=== PATIENT | female | born 1995 | race Caucasian/White ===

== ENCOUNTER 2024-11-05 11:25 | Outpatient (CLI) | payer OTHER, SELFPAY ==
--- NOTE | 2024-11-05 11:30 | CRLHL7_ITS ---
For Patients: As a result of the Century Cures Act, medical imaging exams and procedure reports are released immediately into your electronic medical record. You may view this report before your referring provider. If you have questions, please contact your health care provider. OB ULTRASOUND LESS THAN 14 WEEKS, 11/05/2024 CLINICAL HISTORY: Dating and viability. COMPARISON: None. TECHNIQUE: Real time tomlin scale imaging of the fetus was performed transvaginally. FINDINGS: LMP: 09/06/2024. KELLI by LMP: 06/13/2025. GA: 8 weeks 4 days. CRL: 2.1 cm, 8 weeks 5 days. KELLI 06/12/2025. FHR: 178 bpm. GEST SAC: 3.3 cm, appears within normal limits. YOLK SAC: 3.8 mm, appears within normal limits. RIGHT OVARY: 3.9 x 1.9 x 2.1 cm CL, within normal limits. LEFT OVARY: 2.5 x 1.0 x 1.1 cm CL, within normal limits. IMPRESSION: 1. Single living intrauterine with sonographic gestational age 8 weeks 5 days and sonographic due date 06/12/2025. 2. Subchorionic hemorrhage measures 2.6 x 1.4 x 1.6 cm. 3. Benign small incidental left ovarian cysts. Sundar Perdomo M.D. Diagnostic Radiologist [email or web address] Transcribed: 3:31 pm DW/Dictated by: Sundar Perdomo MD @ 11/05/2024 2:49:00 PM (Electronically Signed)
== END 2024-11-05 11:26 | disposition home or self-care (01) ==
LOC: US 11:25
PROVIDERS: Visit Provider Registered Nurse
DX: Z34.91 Encounter for supervision of normal pregnancy, unspecified, first trimester (principal); O20.9 Hemorrhage in early pregnancy, unspecified; O34.81 Maternal care for other abnormalities of pelvic organs, first trimester; N83.202 Unspecified ovarian cyst, left side; Z3A.08 8 weeks gestation of pregnancy
CPT/HCPCS: 76817; 83021; 86592; 86703; 86704; 86706; 86762; 86787; 86803; 86850; 86900; 86901; 87086; 87340; 87491; 87591

== ENCOUNTER 2025-02-03 11:14 | Outpatient (CLI) | payer OTHER, SELFPAY ==
--- NOTE | 2025-02-03 11:15 | CRLHL7_ITS ---
For Patients: As a result of the Century Cures Act, medical imaging exams and procedure reports are released immediately into your electronic medical record. You may view this report before your referring provider. If you have questions, please contact your health care provider. OB ULTRASOUND SURVEY LMP: 09/26/2024. KELLI by LMP: 06/14/2025. GA: 21 w, 2 d. INDICATION: anatomy. TECHNIQUE: Real time tomlin scale imaging of the fetus was performed. Transabdominal imaging performed. position: Vertex. Cervix: Visualized. Technique: Transabdominal. Length of closed cervix: 3.5 cm. Placenta/cord: Anterior. Technique: Transabdominal. Placenta tip to internal OS: 7.2 cm. Umbilical Cord: 3-vessel cord. Placenta insertion: Central. Amniotic Fluid: 5.4 cm SDP (greater than/equal to: 2- less than 8 cm). SURVEY: Observed Structures. Calvarium/Spine: Cerebellum: 2.4 cm, 23 w 2 d. Cisterna Magna: 3.5 mm. Nuchal Fold: 5.9 mm. Lateral Ventricle: 6.2 mm. CSP: Yes. Midline Falx: Yes. Choroid Plexus: Yes. Spine: Yes. Abdomen: Stomach: Yes. Abd Cord Insertion: Yes. Urinary Bladder: Yes. Kidneys: Yes. Diaphragm: Yes. Face: Nose/lips: Yes. Orbital view: Yes. Profile: Yes. Limbs: Upper Extremities: Yes. Lower Extremities: Yes. Hands: Yes. Feet: Yes. Vascular: 4-Chamber Heart: Yes. LVOT: Yes. RVOT: Yes. 3VV: Yes. 3VTV: Yes. BPD: 5.3 cm. 22 w, 0 d, 76 percent. HC: 19.7 cm. 21 w, 6 d, 66 percent. AC: 16.1 cm. 21 w, 1 d, 39 percent. FL: 3.6 cm. 21 w, 3 d, 44 percent. FL/AC ratio: 22.35 percent. HC/AC ratio: 1.23. heart rate: 155 bpm. age by this US: 22 w, 0 d. KELLI by this US: 06/09/2025. EFW: 417.16 g. Weight: 0 lbs, 15 oz. Percentile by KELLI: 48 percent. IMPRESSION: 1. Concordance of clinical and sonographic dating. 2. Normal anatomic survey. Sundar Perdomo M.D. Diagnostic Radiologist [email or web address] DUONG/Dictated by: Sundar Perdomo MD @ 02/03/2025 7:10:00 PM (Electronically Signed)
== END 2025-02-03 11:15 | disposition home or self-care (01) ==
LOC: US 11:14
PROVIDERS: Visit Provider Obstetrics & Gynecology
DX: Z34.92 Encounter for supervision of normal pregnancy, unspecified, second trimester (principal); Z3A.21 21 weeks gestation of pregnancy
CPT/HCPCS: 76805

== ENCOUNTER 2025-03-26 09:29 | Outpatient (CLI) | payer OTHER, SELFPAY | END 2025-03-26 09:30 | disposition home or self-care (01) | LOC: NFLDREF 09:30 | PROVIDERS: Visit Provider Obstetrics & Gynecology | DX: Z34.03 Encounter for supervision of normal first pregnancy, third trimester (principal); Z67.11 Type A blood, Rh negative | CPT/HCPCS: 86592; 86850; J2791 ==

== ENCOUNTER 2025-04-22 11:13 | Outpatient (CLI) | payer OTHER, SELFPAY | END 2025-04-22 11:14 | disposition home or self-care (01) | LOC: NFLDREF 11:14 | PROVIDERS: Visit Provider Obstetrics & Gynecology | DX: R53.83 Other fatigue (principal) | CPT/HCPCS: 80048; 84443 ==

== ENCOUNTER 2025-05-20 14:02 | Outpatient (CLI) | payer OTHER, SELFPAY ==
[2025-05-21 16:39] LABS: Strep B DNA Probe Negative (Negative)
[2025-05-21 21:21] LABS: Strep B Susceptibility Needed? No
== END 2025-05-20 14:03 | disposition home or self-care (01) ==
LOC: NFLDREF 14:02
PROVIDERS: Visit Provider Obstetrics & Gynecology
DX: Z34.93 Encounter for supervision of normal pregnancy, unspecified, third trimester (principal)
CPT/HCPCS: 87081; 87653

== ENCOUNTER 2025-05-27 22:18 | Inpatient (IN) | payer OTHER, SELFPAY ==
[2025-05-27] VITALS (7 sets, daily range): BP systolic 95–110; BP diastolic 54–62; PULSE 71–171; RESP 12–16; TEMP 36.3–36.8; O2SAT 80–98; BMI 26.6
--- NOTE | 2025-05-27 21:15 | W.PM.LDBA ---
Subjective History of Present Illness Date Seen: 05/27/25 Narrative: Patient is being admitted to Labor and Delivery for labor. She is a 29 year old at 37 3/7 weeks gestation. Her full history and physical was dictated by Dr. Weiner earlier today. Please see this for details. [] Specific Issues/Plans G 1 P0 : Vinod # History genital herpes - 2-3 outbreaks already in Started suppressive therapy of valtrex 500mg BID early due to recurrent outbreaks Confirmed she is taking BID suppressive therapy at 34 week visit # Migraines Reglan rx sent # Rh negative, A neg - Rhogam given 03/26/25 - PP per protocol US: - 02/04/25 FAS: Visualized anatomy within normal limits. EFW 417 g at 48th percentile - BPD 76%, HC 66%, AC 39%, FL 44%. Anterior placenta, no previa. MVP of 5.4 cm. Three-vessel cord, central insertion. Cervix is 3.5 cm. heart rate 155 beats per minute, vertex. Covid: declines Flu: 05/20/2025 TDAP: 04/22/25 RSV: 05/07/25 Mental health:04/22/25 Hgb: Done early on 04/22 due to symptoms, normal at 11.6 GBS: 05/20/2025 OB - Problem Based A/P Additional Plan (1) : Status: Acute Plan Morphine and Vistaril given for pain in late labor. Given cervical change, she was admitted. Otherwise, expectant management. Delivery/Labor/Induction Plan Plan: expectant management OB Exam Physical Exam Vital signs: Temp Pulse Resp BP Pulse Ox 97.9 F 71 16 110/54 L 98 05/27/25 18:10 05/27/25 20:19 05/27/25 18:10 05/27/25 20:19 05/27/25 18:05 Narrative: Physical exam: General: No acute distress Psych: Alert and oriented x3, full affect HEENT: Normocephalic, atraumatic, oropharynx benign Pelvic exam: Cervix per RN: initially 3 / 75 / -2; changed to 4 / 80 / -1 tracing: Baseline 130, accelerations present, no decelerations, moderate variability
[2025-05-28] VITALS (65 sets, daily range): BP systolic 87–195; BP diastolic 51–95; PULSE 54–118; RESP 16–19; TEMP 36.4–36.8; O2SAT 86–100
[2025-05-28] MEDS: LACTATED RINGERS 1000 ML 1,000 ML IV (02:14)
[2025-05-28 02:45] LABS: Hematocrit* 36.1 % (33.0-51.0); Hemoglobin* 12.2 gm/dL (12.0-16.0); Immature Granulocytes Abs Auto 0.10 K/uL (0.00-0.30); Immature Granulocytes Pct Auto 0.9 %; Lymphocytes Absolute Auto 1.70 K/uL (0.90-2.90); Mean Corpuscular HGB Conc 34 gm/dL (32-36); Mean Corpuscular Hemoglobin 30 pg (26-34); Mean Corpuscular Volume 90 fL (80-100); RDW Coefficient of Variation % 13.0 % (11.5-15.5); Red Blood Count* 4.02 m/uL (4.00-5.20); Slide Review Reflex No; White Blood Count* 11.00 K/uL (4.50-11.00)
[2025-05-28] MEDS: ROPIVACAINE 0.2% 100 ml 100 ML 9 MG EPIDURAL ×2 (03:08→12:55)
[2025-05-28] MEDS: LIDOCAINE 2% (PF) 5 ML VIAL EPIDURAL (03:08)
--- NOTE | 2025-05-28 03:20 | PM.ANBPRC ---
[facility] Medical History Herpes simplex of female genitalia ?A60.09 - Herpesviral infection of other urogenital tract (ICD-10) Varicose veins of both lower extremities ?I83.93 - Asymptomatic varicose veins of bilateral lower extremities (ICD-10) History of abnormal cervical Pap smear ?Z87.42 - Personal history of other diseases of the female genital tract (ICD-10) Social History What is your current living situation?: I presently have a place to live Problems where you live: no known problems In the past 12 months, utilities in danger of being shut off: no In past 12 months, lack of transportation kept you from medical appts, meetings, work, or getting things needed for daily living: no In the past 12 mos, have been you worried that your food would run out before you had money to buy more?: never true In the past 12 mos, the food you bought just didn't last and you didn't have money to buy more?: never true Smoking Status: Never smoker How often does anyone, including family, friends and others, physically hurt you: unable to answer How often does anyone, including family, friends and others, insult or talk down to you: unable to answer How often does anyone, including family, friends and others, threaten you with harm: unable to answer How often does anyone, including family, friends and others, scream or curse at you: unable to answer Meds Home Medications and Allergies Home Medications ?Medication ?Instructions ?Recorded ?Confirmed ?Type acetaminophen 500 mg tablet 500 mg PO Q6H PRN 11/05/24 05/27/25 History (Tylenol Extra Strength) docosahexaenoic acid 200 mg mg PO 11/05/24 05/27/25 History capsule ( DHA) acyclovir 5 % topical ointment 1 applic topical TID PRN genital 02/03/25 05/27/25 Rx lesions #5 grams valacyclovir 500 mg tablet 500 mg PO BID 90 days #180 tabs 02/18/25 05/27/25 Rx (Valtrex) Allergies Allergy/AdvReac Type Severity Reaction Status Date / Time Metamizole Allergy Severe Uncoded 05/27/25 10:09 Results Labs Labs: Laboratory Results - last 24 hr 05/28/25 02:05 WBC 11.00 RBC 4.02 Hgb 12.2 Hct 36.1 MCV 90 MCH 30 MCHC 34 RDW Coeff of Roni 13.0 Plt Count 310 Neut % (Auto) 79.9 H Lymph % (Auto) 15.7 L [place] % (Auto) 3.4 Eos % (Auto) 0.0 Baso % (Auto) 0.1 Neut # (Auto) 8.80 H Lymph # (Auto) 1.70 Roosevelt # (Auto) 0.40 Eos # (Auto) 0.00 Baso # (Auto) 0.01 Abs Immat Gran (auto) 0.10 Imm/Tot Granulo (auto) 0.9 Vital Signs Vital Signs: Last Vital Signs Temp 98.3 F 05/27/25 23:31 Pulse 95 05/28/25 03:15 Resp 12 05/27/25 23:31 BP 113/60 05/28/25 03:15 Pulse Ox 99 05/28/25 03:18 Weight: 61.915 kg Height: 152.4 cm Anesthesia Procedures Epidural Insertion Patient Location: OB Start Time: 02:35 Stop Time: 03:22 Start Date: 05/28/25 Stop Date: 05/28/25 Reason for Block: procedure for pain Patient Position: sitting Performed By: Vanessa Rodriguez Preanesthetic Checklist: IV checked, risks and benefits discussed, monitors and equipment checked, pre-op evaluation, timeout performed and anesthesia consent Prep: chlorhexidine gluconate Monitoring: blood pressure monitoring, continuous pulse oximetry and heart rate Approach: midline Vertebral Space: lumbar (1-5) Epidural Technique: DANIEL saline Needle Type: Tuohy needle Injection Technique: continuous catheter Needle gauge: 17 Needle Length (cm): 10 cm Needle Insertion Depth (cm): 5 Catheter Gauge: 19 Catheter Type: multi-orifice Catheter at skin depth (cm): 11 Test Dose Result: negative and lidocaine 1.5% with epinephrine 1 to 200,000
[2025-05-28] MEDS: LACTATED RINGERS 1000 ML 1,000 ML 125 ML IV ×2 (03:24→07:31)
[2025-05-28] MEDS: PHENYLEPHRINE 100 MCG/ML SYRINGE IVP (06:00)
--- NOTE | 2025-05-28 06:28 | PM.OBPNL ---
Subjective Date Seen: 05/28/25 Narrative: Trey is a 29 yo woman at 37 4/7 weeks' gestation who presented last night in early labor. She initially had morphine / Vistaril followed by epidural for pain control. She has progressed through active labor with membranes intact and without augmentation. I was just called to bedside with report of spontaneous deceleration. Prior to deceleration, HR baseline was 130 with moderate variability. AT 5:54 AM, there was a prolonged deceleration lasting 8 minutes total, with dereck in what appears to have been the 50s but with areas of discontinuous tracing. Thereafter, there was a prolonged acceleration with return of moderate variability. At the writing of this note, baseline appears to be 150 with moderate variability and no decelerations. Upon my entering the room, the patient had already been given phenylephrine for low BP and repositioned in hands and knees. FHR had already recovered by this point. Cervical exam was performed: 8 100 but with vertex unusually high and anterior to the cervix, bulging bag. Patient was repositioned in thrones position. Bedside US was performed with color doppler showing no funic presentation, fetus LOP. Then, with patient slightly reclined, AROM performed for clear fluid, bringing head over cervix. Patient was repositioned in thrones; I am uncertain of station at the moment due to this. Objective Exam: Gen - NAD Cervical exam: 8 100 / initially high station; AROM as noted above for clear fluid Vital Signs: Last Vital Signs Temp 98.1 F 05/28/25 05:26 Pulse 71 05/28/25 06:17 Resp 12 05/27/25 23:31 BP 113/58 L 05/28/25 06:17 Pulse Ox 98 05/28/25 03:28 Comments: Tracing as described above Contractions Contraction pattern: Regular Pitocin Rate (mU/min): 0 Assessment Assessment: active labor Amniotic Membrane Status: AROM Tracing Comments: Currently reassuring after prolonged deceleration; no cord prolapse or abuption. GBS negative Labor Progress: Active labor progressing without augmentation Maternal Status: BP low-normal; feeling well after epidural. Plan Plan: Continuous monitoring. Slowly reposition to promote rotation of head.
--- NOTE | 2025-05-28 07:04 | P.OBPN_ITS ---
Subjective Date Seen: 05/28/25 Narrative: Trey is a 29yo at 37w4d GA admitted for spontaneous onset of labor. Labor has progressed without augmentation to 8/100% with high vertex. She had a spontaneous prolonged decel at 0600, where after recovery and bedside US Dr. Mejia performed AROM. Trey is comfortable with epidural in place. She is francesca spontaneously q2-3m. Objective Exam: General: Alert and oriented, in no acute distress Psych: Appropriate mood and affect Abdomen: Gravid. FHR is category 1 - baseline 135bpm, moderate variability, accelerations present and no decelerations. Cervix: 8/90/-1 [place]: Francesca q2-3m Vital Signs: Last Vital Signs Temp 98.1 F 05/28/25 05:26 Pulse 71 05/28/25 06:49 Resp 12 05/27/25 23:31 BP 102/66 05/28/25 06:49 Pulse Ox 98 05/28/25 03:28 Contractions Contraction pattern: Regular Pitocin Rate (mU/min): 0 Assessment Amniotic Membrane Status: AROM Plan Plan: Trey is a 29yo at 37w4d GA admitted for spontaneous onset of labor. Labor had progressed without augmentation to 8/100% with high vertex. She had a spontaneous prolonged deceleration at 0600, where after recovery and bedside US Dr. Mejia performed AROM. Repeat cervical exam was performed at 2 hours. Cervix is unchanged at 8/90/-1. position is challenging to definitively identify (incomplete dilation, high station) but sagittal suture does palpate in a trajectory that implies likely persistent LOP position. Fortunately the head does feel more central in the pelvis than previously described. Explained that absence of cervical change represents labor dystocia in the active phase. Discussed differential diagnosis for this including power, passenger and pelvis. To better address power, plan to start IV Pitocin to improve the strength of contractions. Continue repositioning to optimize position, suspected LOP at present. Pelvis palpates adequate. Recommend repeat cervical exam in 2 hours. If still unchanged, would recommend IUPC and continued Pitocin titration pending heart rate/toco data. Explained if there were absence of cervical change at 6 hours in the active ph ase, this would represent arrest of dilation and be an indication to proceed with primary delivery. Plan IV Pitocin and position changes to optimize likelihood of . Blood type A negative, GBS negative. All questions answered. Patient and expressed understanding and are agreeable to plan.
[2025-05-28] MEDS: OXYTOCIN 30 unit/500 ML in NS 30 UNIT/500 ML BAG IVPB (09:00)
[2025-05-28] MEDS: LACTATED RINGERS 1000 ML 1,000 ML 1125 ML IV (13:09)
--- NOTE | 2025-05-28 13:38 | P.OBPN_ITS ---
Subjective Date Seen: 05/28/25 Narrative: Trey is a 29yo at 37w4d GA admitted for spontaneous onset of labor. Labor was augmented with AROM then pitocin in the setting of labor dystocia in the active phase. Made change to 8.5-9cm per RN exam at 1030. Seen for routine exam. Patient is resting comfortably. Objective Exam: General: Alert and oriented, in no acute distress Psych: Appropriate mood and affect Abdomen: Gravid. FHR is category 2 - baseline 140bpm, moderate variability, accelerations present and rare early or late appearing decelerations. Cervix: 10/100/+1 [place]: Jessie Q1-2m Vital Signs: Last Vital Signs Temp 98.3 F 05/28/25 09:00 Pulse 73 05/28/25 11:33 Resp 12 05/27/25 23:31 BP 144/86 H 05/28/25 13:17 Pulse Ox 86 L 05/28/25 13:15 Contractions Contraction pattern: Regular Pitocin Rate (mU/min): 0 Assessment Amniotic Membrane Status: AROM Plan Plan: Patient is now complete, start maternal expulsive efforts in 2nd stage. Continuous monitoring ongoing. Blood type A negative, GBS negative.
--- NOTE | 2025-05-28 13:43 | W.PM.VAGD1_ITS ---
Procedure Procedure Done: Global Procedure Details: Normal spontaneous vaginal delivery 2nd degree laceration repair Events: Other (Genital HSV (on valtrex), migraines) Delivery augmentation: rupture of membranes and pitocin Delivery monitor: internal FHT Route of delivery: Laceration description: Perineal - 2nd Degree Delivery repair: Vicryl Estimated blood loss (mL): 250 Anesthesia type: Epidural Disposition: floor Complications: None Narrative: Trey is a 29 yo G 1 P 0 at 37 w4d GA admitted for spontaneous onset of labor. is complicated by genital HSV (on Valtrex), migraines. heart tones on admission were category 1. Her labor was augmented with AROM and Pitocin, and epidural was utilized for pain management. Status of bag of castillo: AROM performed intrapartum, clear fluid. heart tones during active labor were category 1 and 2. She was complete at 1242 and started pushing at 1242. She made excellent descent throughout the second stage of labor, and had a normal spontaneous vaginal delivery at 1315. heart tones during second stage of labor were category 2 for recurrent variable decelerations, 1 of which was a prolonged deceleration at 1253. During that time, Pitocin was discontinued concurrently with IV fluid bolus and maternal repositioning. FSE was applied. Fetus was noted to recover and briefly had a baseline of 160bpm. Subsequent to this, recurrent variable decelerations did occur but had a rapid return to normal baseline of 150bpm. Baby delivered OA, restituted ENIO and the anterior and posterior shoulders delivered without difficulty. Nuchal cord: none. The cord was clamped and cut after delayed cord clamping. Active management of the third stage occurred with IV pitocin and gentle cord traction and the placenta delivered spontaneous and intact at 1320. Cord gases sent: no Cord blood sent for ABO: yes details: - Liveborn female fetus at 1315 - weight pending at time of documentation - APGARs were 8 and 8 at 1 and 5 minutes respectively Perineum and vagina were inspected, and the following lacerations were noted: 2nd degree laceration. Repair was completed in the usual fashion with 2-0 vicryl under epiural analgesia. Excellent hemostasis was noted. The following counts were correct: sponges, needles, instruments. Mother and in stable condition following the . [place] Infant Gender: Female presentation: vertex Placental Delivery Description: Spontaneous Cord Description: 3 Vessels
[2025-05-28] MEDS: IBUPROFEN 600 MG TABLET PO (16:57)
[2025-05-29 00:07] VITALS: BP 95/63; PULSE 77; RESP 16; TEMP 36.3; O2SAT 96
[2025-05-29] MEDS: ACETAMINOPHEN 500 MG TABLET 1000 MG PO (00:12)
[2025-05-29] MEDS: IBUPROFEN 600 MG TABLET PO (04:04)
[2025-05-29 04:30] VITALS: BP 103/70; PULSE 69; RESP 16; TEMP 36.3; O2SAT 97
[2025-05-29 05:48] LABS: Hemoglobin* 9.5 gm/dL (12.0-16.0)
[2025-05-29 07:50] VITALS: BP 97/66; PULSE 70; RESP 16; TEMP 36.6; O2SAT 97
--- NOTE | 2025-05-29 09:31 | PM.OBDSVD1 ---
DS: Providers Provider Date Seen: 05/29/25 Date of admission: 05/27/25 22:18 Primary care physician: Not a Local Provider Admitting Clinician: Jacy Mejia MD Attending Physician on discharge: Margie Gaviria CNM Date of Discharge: 05/29/25 DS: Diagnosis Discharge Diagnosis (1) care and examination immediately after delivery: Status: Acute (2) Lactating mother: Status: Acute (3) (normal spontaneous vaginal delivery): Status: Acute Exam Narrative: Exam Narrative: VSS, afebrile GENERAL APPEARANCE: ?normal affect, alert, no distress MOOD: ?appropriate HEENT: normocephalic, neck supple, full ROM CHEST: ?Symmetrical chest wall movement. ?Normal respiratory effort. ?Clear to auscultation HEART: ?regular rate and rhythm ABDOMEN: ?soft, non-tender. Uterine fundus is firm, at Umbilicus, Midline and is appropriate for the stage of recovery. ?Bowel sounds present. PERINEUM: ?mild edema of the perineum, there is a 2nd degree laceration that is healing well. EXTREMITIES: ?normal and no edema Const: Vital Signs, click to edit/add: Vital Signs - 24 hr 05/28/25 09:32 05/28/25 09:47 05/28/25 10:02 Temperature Pulse Rate 55 L 54 L 64 Pulse Rate [Pulse Oximeter] Respiratory Rate Blood Pressure 89/55 L 87/53 L 87/53 L Blood Pressure [Le ft Arm] Pulse Oximetry Oxygen Delivery Me thod 05/28/25 10:34 05/28/25 11:03 05/28/25 11:18 Temperature Pulse Rate 63 65 72 Pulse Rate [Pulse Oximeter] Respiratory Rate Blood Pressure 89/53 L 104/56 L 101/55 L Blood Pressure [Le ft Arm] Pulse Oximetry Oxygen Delivery Me thod 05/28/25 11:33 05/28/25 12:55 05/28/25 13:14 Temperature Pulse Rate 73 Pulse Rate [Pulse Oximeter] Respiratory Rate Blood Pressure 108/59 L Blood Pressure [Le ft Arm] Pulse Oximetry 100 93 Oxygen Delivery Me thod 05/28/25 13:15 05/28/25 13:17 05/28/25 13:51 Temperature Pulse Rate 67 Pulse Rate [Pulse Oximeter] Respiratory Rate Blood Pressure 144/86 H 139/63 Blood Pressure [Le ft Arm] Pulse Oximetry 86 L Oxygen Delivery Me thod 05/28/25 13:51 05/28/25 14:02 05/28/25 14:02 Temperature 98.2 F Pulse Rate 88 Pulse Rate [Pulse Oximeter] Respiratory Rate 18 19 Blood Pressure 113/58 L Blood Pressure [Le ft Arm] Pulse Oximetry Oxygen Delivery Me thod 05/28/25 14:17 05/28/25 14:17 05/28/25 14:32 Temperature Pulse Rate 63 63 Pulse Rate [Pulse Oximeter] Respiratory Rate 18 Blood Pressure 108/64 107/55 L Blood Pressure [Le ft Arm] Pulse Oximetry Oxygen Delivery Me thod 05/28/25 14:32 05/28/25 14:47 05/28/25 14:47 Temperature Pulse Rate 59 L Pulse Rate [Pulse Oximeter] Respiratory Rate 18 18 Blood Pressure 105/58 L Blood Pressure [Le ft Arm] Pulse Oximetry Oxygen Delivery Me thod 05/28/25 15:02 05/28/25 15:02 05/28/25 15:17 Temperature Pulse Rate 64 75 Pulse Rate [Pulse Oximeter] Respiratory Rate 18 Blood Pressure 99/57 L 97/53 L Blood Pressure [Le ft Arm] Pulse Oximetry Oxygen Delivery Me thod 05/28/25 15:17 05/28/25 15:32 05/28/25 15:32 Temperature Pulse Rate 69 Pulse Rate [Pulse Oximeter] Respiratory Rate 18 16 Blood Pressure 109/64 Blood Pressure [Le ft Arm] Pulse Oximetry Oxygen Delivery Me thod 05/28/25 15:47 05/28/25 15:47 05/28/25 15:55 Temperature Pulse Rate 74 Pulse Rate [Pulse Oximeter] Respiratory Rate 16 18 Blood Pressure 106/63 Blood Pressure [Le ft Arm] Pulse Oximetry Oxygen Delivery Me thod 05/28/25 16:44 05/28/25 21:30 05/29/25 00:07 Temperature 98.2 F 97.4 F L Pulse Rate Pulse Rate [Pulse Oximeter] 90 74 77 Respiratory Rate 18 16 16 Blood Pressure Blood Pressure [Le ft Arm] 103/67 100/68 95/63 Pulse Oximetry 98 97 96 Oxygen Delivery Me thod Room Air Room Air Room Air 05/29/25 04:30 05/29/25 07:50 Temperature 97.3 F L 97.9 F Pulse Rate Pulse Rate [Pulse Oximeter] 69 70 Respiratory Rate 16 16 Blood Pressure Blood Pressure [Le ft Arm] 103/70 97/66 Pulse Oximetry 97 97 Oxygen Delivery Me thod Room Air Room Air Documenting provider has reviewed patient's vital signs: yes OB - DS: Summary Hospital Course Hospital Course: Trey is a 29 y.o. who was admitted to [facility] for labor. ?She had an uncomplicated NVD.?The patient feels well. ?The pain is well controlled with current medications. ?She has no new complaints. ?She is breast feeding and reports things are going well.? the patient has done well.? Vitals have been stable.? She has remained afebrile.? Has a good appetite, is tolerating a general diet. ?She is voiding without difficulty.? She is passing gas and has had a bowel movement.? She is ambulating and denies any dizziness.? Has Small amount of rubra lochia. ?She is undecided on her plan for prevention. Peripartum Data Infant delivery method: Vaginal Laceration description: Perineal - 2nd Degree complications: none Gender: Female Infant Discharge Plan: Home Status at Discharge Functional status at discharge: independent ambulation Overall status at discharge: patient is progressing back to baseline Time Spent with Patient Time attestation: Total time spent providing and/or coordinating discharge services: Time spent: Less than 30 minutes Discharge Plan Discharge Disposition: Home, Self-Care Date of Admission: 05/27/25 22:18 Attending Provider on Discharge: Margie Gaviria Primary Care Provider: Provider,Not a Local Condition: Stable Anticipated Discharge Date/Time: 05/29/25 12:00 Discharge Medications: New acetaminophen 500 mg Tablet 1,000 mg PO Q6H PRNQty: 0 0RF docusate sodium 100 mg Capsule 100 mg PO DAILY Qty: 90 0RF ferrous sulfate 325 mg (65 mg iron) Tablet 325 mg PO Q48H Qty: 30 0RF ibuprofen 600 mg Tablet 600 mg PO Q6H PRNQty: 60 0RF Continued DHA 200 mg capsule PO acetaminophen [Tylenol Extra Strength] 500 mg tablet 500 mg PO Q6H PRN acyclovir 5 % ointment 1 applic topical TID PRN (Reason: genital lesions) Qty: 5 0RF Discontinued valacyclovir [Valtrex] 500 mg tablet 500 mg PO BID 90 Days Qty: 180 1RF Rx Instructions: After completing treatment for active outbreak, on day 6 you will start suppressive therapy (500mg twice daily) through remainder of . Discharge Orders: Discharge Order (Routine); Ordered 05/29/25 Ordered By: Margie Gaviria Patient Education: OB Over the Counter Medication Information, OB Vaginal/Breast Feeding Additional Instructions: Discharge instructions were reviewed with the patient including signs and symptoms of infection and home going medications Nothing vaginally for 6 weeks: no tampons or intercourse Off Work or School for 8 weeks 2-week visit: discuss infant feeding concerns, review control options and screen for anxiety/depression. 6-week visit for an annual exam. consultation services are available to all mothers and babies for the first year after delivery.? To make an appointment, please call [phone]. Activity Level: Activity as Tolerated Discharge Diet: Regular Follow Up Appointments: [facility] [Provider Group] Forms: [employer] Info Instructions
[2025-05-29 13:19] VITALS: BP 97/66; PULSE 72; RESP 16; TEMP 37.1; O2SAT 97
--- NOTE | 2025-05-29 14:04 | PM.ANPOST ---
Post Anesthesia Note Post Anesthesia Note Patient seen: Inpatient Respiratory Status: adequate Cardiovascular Status: adequate Mental Status: baseline Pain: adequate Temp: baseline Anesthetic awareness: N/A Complications: none Follow care: none
== END 2025-05-29 17:05 | disposition home or self-care (01) | DRG 807 ==
LOC: OB OUT 22:19 → OB 22:19
PROVIDERS: Obstetrics & Gynecology; Admitting Provider Obstetrics & Gynecology; Visit Provider Obstetrics & Gynecology
DX: O26.893 Other specified pregnancy related conditions, third trimester (principal); Z37.0 Single live birth; Z67.11 Type A blood, Rh negative; O98.32 Other infections with a predominantly sexual mode of transmission complicating childbirth; A60.00 Herpesviral infection of urogenital system, unspecified; O70.1 Second degree perineal laceration during delivery; Z3A.37 37 weeks gestation of pregnancy
CPT/HCPCS: 01967; 36415; 85018; 85025; 86592; 86850; 86870; 86880; 86900; 86901; G0463; A9270; J2270; J2795; J7120

== ENCOUNTER 2025-06-23 14:00 | Outpatient (CLI) | payer OTHER, SELFPAY ==
--- NOTE | 2025-06-23 16:18 | W.PM.LAC.MC ---
Consult Note - Mom Date of Visit Date of visit: 06/23/25 Reason for consultation: Assistance Needed and Low Milk Supply Visit Code: Visit Patient's Information Phone number: [phone] Para: 1 Allergies Metamizole Allergy (Severe, Uncoded 05/27/25 10:09) Mother's Medical History: Medical History (Updated 06/04/25 @ 00:01 by Background Daemon) Herpes simplex of female genitalia ?A60.09 - Herpesviral infection of other urogenital tract (ICD-10) Varicose veins of both lower extremities ?I83.93 - Asymptomatic varicose veins of bilateral lower extremities (ICD-10) History of abnormal cervical Pap smear ?Z87.42 - Personal history of other diseases of the female genital tract (ICD-10) Work Plans: return to work at 12 weeks postpartm Delivery Information Delivery type: Vaginal Gestational Age: 37+4 Gestational Weight For Age: AGA Weight: 2.77 kg Discharge Weight: 2.644 kg Percentage weight loss: 4.6 Baby's Information Baby's Age at Visit: 26 days Baby's Provider or Clinic: [facility] Jaundice: No Past Experience Past Experience: No Current Frequency of Day Feedings: every 2-3 hrs with some cluster feedings; 7 feedings ea in the last 24 hour Frequency of Night Feedings: 4-5 hr stretches Both Breasts: Yes Suck: strong on and off Latch: comfortable Length of Time: 10 min or so on ea side Pumping Pumping: Yes Quantity Pumped: 1 oz afer feeding ea AM x a few days Supplementing EBM Supplement: Yes Formula Supplement: Yes (2 oz via bottle if acting hungry, x few days) Baby Elimination Number of Wet Diapers a Day: ea feeding Number of BM a Day: several/day Breast/Nipple Condition Breast Information: Breasts are symmetrical with rounded lower quadrants, intramammary distance is less than 1.5 inches. No erythema. Nipples are supple, everted prior to feeding. Mom feels her breasts are not as full as they used to be over the last week or so Breast Shape: Round Engorgement: No Maternal Nipple Condition - Left: Common Nipple Maternal Nipple Condition - Right: Common Nipple Sore Nipples: No Baby Assessment Skin: Normal Tongue/frenulum: Normal/elastic Palate: Average Lips: Relaxed and Symmetrical Jaw Alignment: Symmetrical Mucosa: Doffing, moist Onsite Observation Pre-Feed weight: 3.136 kg Post-Feed weight: 3.178 kg Milk Transferred (mL): 42 Position: Cross cradle Attachment/latch-on achieved: Easily Suck pattern: Suck burst and normal rest Swallow: Audible, consistent (for first 5 minutes, then less unless using breast compression for assist) Behavior following feed: Alert, fussy Pre-Nursing Left Nipple: Within Normal Limits Pre-Nursing Right Nipple: Within Normal Limits Post-Nursing Left Nipple: Within Normal Limits Post-Nursing Right Nipple: Within Normal Limits Assessments/Interventions Assessments/Interventions: Mom is here for milk transfer assessment as baby has been much more fussy over the last week, often not satisfied after feedings and mom feels she has nothing left in her breasts. Merly is increasingly more fussy in the afternoon hours. Merly was weighed at [facility] in [place] on 06/18; weight was 6# 6oz; todays weight is 6# 14.6 oz which is acceptable if both scales are accurate. But based on baby's fussiness a weighted feed was completed. Babe latched to mom's LEFT breast, latched well and eagerly and stayed nursing for 12 minutes. When no more swallowing audible, mom unlatched baby and babe was very upset. Transferred 20 ml of milk Merly then latched to mom's RIGHT breast, latched eagerly and nursed for another 10 minutes. Transferred 22 ml of milk. Total volume transferred: 42 ml and nuviae acting hungry. Mom has been giving some formula as needed and was open to supplementing. Babe took 40 ml over about 7 minutes and then was content. Education provided: Early feeding cues to maximize timing of latching, Asymmetric latch technique for wide/deep latch to increase milk, Transfer for baby and increase comfort for mom, Supply/demand nature of milk supply, Alternative feeding methods (SNS, cup, finger feeding, bottling) and Pumping for milk management Feeding Plan: Breastfeed for 10 min on each breast, listening for active swallowing, utilize breast compression to get more milk to baby and keep baby engaged in feeding longer. Pump both breasts for: 15? minutes after each feeding both to have EBM for supplementing and to try and build supply; a full 20 minutes if pumping instead of Feed baby 1/2-1 oz l of pumped milk and/or formula every 2-3 hours based on feeding cues. No longer than 4 hr stretches at night to maximize mom's milk supply Use a syringe/feeding tube, cup, or bottle for feedings based on preference Try skin to skin to increase milk production Consider herbal supplements such as GoLacta, Mothers Milk Tea, or More Milk Plus Follow-Up Suggested follow up: Appointment in 1 week Time Spent Time spent with patient (min): 90 Meds Home Medications and Allergies Home Medications ?Medication ?Instructions ?Recorded ?Confirmed ?Type acetaminophen 500 mg tablet 500 mg PO Q6H PRN 11/05/24 05/27/25 History (Tylenol Extra Strength) docosahexaenoic acid 200 mg mg PO 11/05/24 05/27/25 History capsule ( DHA) acyclovir 5 % topical ointment 1 applic topical TID PRN genital 02/03/25 05/27/25 Rx lesions #5 grams acetaminophen 500 mg tablet 1,000 mg (2 x 500 mg) PO Q6H PRN 05/29/25 Rx #0 tabs docusate sodium 100 mg capsule 100 mg PO DAILY #90 caps 05/29/25 Rx ferrous sulfate 325 mg (65 mg 325 mg PO Q48H #30 tabs 05/29/25 Rx iron) tablet ibuprofen 600 mg tablet 600 mg PO Q6H PRN #60 tabs 05/29/25 Rx Allergies Allergy/AdvReac Type Severity Reaction Status Date / Time Metamizole Allergy Severe Uncoded 05/27/25 10:09
== END 2025-06-23 14:01 | disposition home or self-care (01) ==
LOC: OB LAC 14:00
PROVIDERS: Visit Provider Obstetrics & Gynecology
DX: Z39.1 Encounter for care and examination of lactating mother (principal)
CPT/HCPCS: G0463

== ENCOUNTER 2025-06-30 14:25 | Outpatient (CLI) | payer OTHER, SELFPAY ==
--- NOTE | 2025-06-30 15:52 | W.PM.LAC.MF ---
Follow-Up Note: Mom Date of visit Date of visit: 06/30/25 Reason for consultation: Assistance Needed and Low Milk Supply Visit Code: Visit Patient's Information Allergies Metamizole Allergy (Severe, Uncoded 05/27/25 10:09) Delivery Information Last Weight: 3.136 kg Baby's Information Baby's name: Gavi Baby's Age at Visit: 33 days Baby's Provider or Clinic: [facility] Current Frequency of Day Feedings: q 2 hrs Frequency of Night Feedings: q3-4 hrs, wakes self for feedings Both Breasts: Yes Suck: strong intermittently Latch: starts deep, often shifts to a shallow latch-lindsay on the left side Length of Time: 10-15min on1st side, then 7-8 min on 2nd side Pumping Pumping: Yes Quantity Pumped: 4x/day; gets 1-1.5 oz Supplementing EBM Supplement: Yes Formula Supplement: Yes Baby Elimination Number of Wet Diapers a Day: ea fdg Number of BM a Day: 6-8/day yellow and seedy Breast/Nipple Assessment Breast/Nipple Assessment: Breasts are symmetrical with rounded lower quadrants, intramammary distance is less than 1.5 inches. No erythema. Nipples are supple, everted prior to feeding. Breast Shape: Round and Firm Engorgement: No Maternal Nipple Condition - Left: Common Nipple Maternal Nipple Condition - Right: Common Nipple Sore Nipples: No Onsite Observation Pre-feed weight: 3.34 kg Post-Feed weight: 3.378 kg Milk Transferred (mL): 38 Pre-Nursing Left Nipple: Within Normal Limits Pre-Nursing Right Nipple: Within Normal Limits Post-Nursing Left Nipple: Within Normal Limits Post-Nursing Right Nipple: Within Normal Limits Assessments/Interventions Assessments/Interventions: f/u 1 week after last visit to assess milk supply and milk transfer. Mom initially was offering supplement to baby after every feeding; the last 3 days babe has been more content with BFings and mom not offering supplement. Dominice is nursing 10-15 min on 1st side, then 7-8 on 2nd side. Mom is pumping about 4 times/day. She gets 1-1.5 oz in the AM, and same when she pumps before bed, but not much during the day pumps. Katiana has continued to void and stool without a decrease in volumes even without supplement. Mom has continued with oatmeal for breakfast. She may consider a galactogogue given the current state of her milk supply. Katiana latched to mom's LEFT breast, latched well albeit not as deep as desired. Mom has no pain with latch; baby stayed nursing for 10 minutes. Transferred 0 ml of milk; baby reweighed to confirm this. Katiana then latched to mom's RIGHT breast, latched well and more deeply and nursed for another 10 minutes. Transferred 36 ml of milk. Relatched babchong to mom's LEFT breast working for a deeper latch; babe immediately comes to the end of mom's nipple. After 5 min of nursing mom feels baby is not suckling very strong. Transferred 2 ml of milk Total volume transferred: 38 ml, and katiana quite fussy after feeding. Mom gave formula she brought with her; katiana took 45 ml and was then very content. Discussed options to get mom to pump more without taking milk from baby. Following plan outlined for her to try: Since milk supply currently looks lower on the left breast, start 2 times on the left for every 1 time on the right. BF for 5-10 minutes to baby's tolerance. Then switch baby to the RIGHT breast and put wearable pump on to pump LEFT side while nursing on the RIGHT. Repeat this for starting on the RIGHT side. Continue AM and qHS pumps as she's been doing since this is working well. Goal is 2.0-2.5 oz/feeding. Education provided: Asymmetric latch technique for wide/deep latch to increase milk, Transfer for baby and increase comfort for mom, Supply/demand nature of milk supply, Need for frequent stimulation/milk removal, Alternative feeding methods (SNS, cup, finger feeding, bottling), Pumping for milk management and Milk collection, storage Follow-Up Recommend baby be seen by provider for:: 07/04 for clinic appt; mom to call after that visit to discuss weight gain and progress with milk production Time Spent Time spent with patient (min): 75 Meds Home Medications and Allergies Home Medications ?Medication ?Instructions ?Recorded ?Confirmed ?Type acetaminophen 500 mg tablet 500 mg PO Q6H PRN 11/05/24 05/27/25 History (Tylenol Extra Strength) docosahexaenoic acid 200 mg mg PO 11/05/24 05/27/25 History capsule ( DHA) acyclovir 5 % topical ointment 1 applic topical TID PRN genital 02/03/25 05/27/25 Rx lesions #5 grams acetaminophen 500 mg tablet 1,000 mg (2 x 500 mg) PO Q6H PRN 05/29/25 Rx #0 tabs docusate sodium 100 mg capsule 100 mg PO DAILY #90 caps 05/29/25 Rx ferrous sulfate 325 mg (65 mg 325 mg PO Q48H #30 tabs 05/29/25 Rx iron) tablet ibuprofen 600 mg tablet 600 mg PO Q6H PRN #60 tabs 05/29/25 Rx Allergies Allergy/AdvReac Type Severity Reaction Status Date / Time Metamizole Allergy Severe Uncoded 05/27/25 10:09
== END 2025-06-30 14:26 | disposition home or self-care (01) ==
LOC: OB LAC 14:26
PROVIDERS: Visit Provider Obstetrics & Gynecology
DX: Z39.1 Encounter for care and examination of lactating mother (principal)
CPT/HCPCS: G0463